=== PATIENT | male | born 1960 | race Caucasian/White ===

== ENCOUNTER → 2021-07-24 | Outpatient (CLI) | payer BC ==
--- NOTE | 2021-07-24 14:14 | RAD ---
XR SHOULDER_LEFT 2+ VIEWS DATE: 07/24/2021 12:17 PM INDICATION: PAIN IN SHOULDER / Spl. Instructions: / History: COMPARISON: None. FINDINGS: Bones: There is no evidence of acute fracture or dislocation. Joints: Severe degenerative changes of the glenohumeral joint. Mild degenerative changes of the acrom ioclavicular joint. The acromiohumeral distance is not narrowed. Miscellaneous: No abnormal soft tissue calcifications in the shoulder. IMPRESSION: Severe glenohumeral joint degenerative changes. Electronically signed by: Dwayne Rojas MD (07/24/2021 2:12 PM) [id number]
== END ==
LOC: RAD 11:47
PROVIDERS: ATTEND Physician Assistant Medical
DX: M19.012 Primary osteoarthritis, left shoulder (principal)
CPT/HCPCS: 73030